=== PATIENT | male | born 1980 | race Caucasian/White ===

== ENCOUNTER → 2024-04-25 11:20 | Outpatient (REF) | payer OTHER, SELFPAY | LOC: HWRAD 11:20 | PROVIDERS: ATTENDING PHYSICIAN Internal Medicine | DX: S76.212A Strain of adductor muscle, fascia and tendon of left thigh, initial encounter (principal); M25.552 Pain in left hip; M25.511 Pain in right shoulder | CPT/HCPCS: 73030; 73502 ==